=== PATIENT | female | born 1980 | race Caucasian/White ===

== ENCOUNTER 2020-11-03 20:30 | Emergency (ER) | payer BC ==
[~2020-11-03] VITALS: Ht 167.6 cm; Wt 109.3 kg
[~2020-11-03 20:30] MED LIST: ALBUTEROL0.09 MG/A2 INH; AMLODIPINE BESYL5 MG PO; AMOXICILLIN500 MG PO; AMOXIL125 MG/5 M PO; ANAPROX DS550 MG PO; BENADRYL ALLERG25 M5 PO; CIPRO250 MG PO; CIPROFLOXACIN500 MG PO; CLARITIN10 MG PO; CLARITIN5 MG/5 ML PO; COMBIVENT1 ARO IH; DAYPRO600 M1 PO; DIFLUCAN150 MG PO; FLEXERIL10 MG PO; GOOD NEIGHBOR P20 MG PO; GOOD NEIGHBOR150 MG PO; HYDROCHLOROTHIA25 M1 PO; LOSARTAN POTASS25 M1 PO; MIDRIN (DURADR1 CAP PO; MOTRIN800 MG PO; NKHM; NORCO 5-325 TA1 EACH PO; PAROXETINE HCL10 MG PO; PEN-VEE K500 MG PO; PEPCID20 MG PO; PREDNICOT20 MG PO; PREDNISONE10 M1 PO; PRELONE5 MG/5 ML PO; REGLAN10 M1 PO; ROBAXIN750 MG PO; TESSALON PERLE100 M1 PO; TESSALON PERLE100 MG PO; ZITHROMAX Z PA250 MG PO; ZITHROMAX250 MG PO
[2020-11-03 21:33] VITALS: BP 126/81
[2020-11-03 23:04] LABS: BASO % 0.2 % (0.0-1.0); EOS # 0.3 10*3/uL (0.0-0.4); EOS % 2.6 % (1.0-4.0); HEMATOCRIT 40.3 % (37.0-47.0); LYMPH # 2.7 10*3/uL (1.3-4.4); LYMPH % 27.6 % (27.0-41.0); MEAN CELL VOLUME 86.5 fl (81.0-99.0); MEAN CORPUSCULAR HGB 27.7 pg (27.0-31.0); MEAN PLATELET VOLUME 10.2 fl (9.6-12.3); MONO # 0.6 10*3/uL (0.1-1.0); NEUT # 6.1 10*3/uL (2.3-7.9); NEUT % 63.3 % (47.0-73.0); PLATELET COUNT AUTOMATED 274 10*3/uL (130-400); RED BLOOD COUNT 4.66 10*6/uL (4.10-5.10); RED CELL DISTRI WIDTH 14.9 % (0-14.5); WHITE BLOOD COUNT 9.7 10*3/uL (4.8-10.8)
[2020-11-03 23:07] LABS: BILIRUBIN Negative (Negative); BLOOD Negative (Negative); CLARITY Cloudy (Clear); COLOR Dark Yellow (Yellow); GLUCOSE Negative (Negative); KETONE Trace (Negative); LEUKO ESTERASE Negative (Negative); NITRITE Negative (Negative); SPECIFIC GRAVITY 1.025 (1.001-1.030)
[2020-11-03 23:20] LABS: ALBUMIN 3.4 gm/dl (3.1-4.5); ALKALINE PHOSPHATASE 93 U/L (45-117); BUN 12 mg/dl (7-24); CHLORIDE 111 mmol/L (98-107); CREATININE 0.89 mg/dL (0.55-1.02); LIPASE 131 U/L (73-393); SGOT/AST 14 IU/L (3-35); SGPT/ALT 29 U/L (12-78); SODIUM 140 mmol/L (136-145); TOTAL PROTEIN 7.3 gm/dL (6.4-8.2)
[2020-11-03 23:26] LABS: WBC 0-2 wbc/hpf (0-5)
== END 2020-11-04 01:07 | disposition home or self-care (01) ==
LOC: ED 20:30
PROVIDERS: Emergency Medicine
DX: R10.13 Epigastric pain (principal); K21.9 Gastro-esophageal reflux disease without esophagitis; I10 Essential (primary) hypertension; Z79.899 Other long term (current) drug therapy

== ENCOUNTER → 2021-03-27 | Outpatient (CLI) | payer BC | LOC: US 07:12 | PROVIDERS: ATTEND Nurse Practitioner Women's Health | DX: N83.292 Other ovarian cyst, left side (principal); N92.1 Excessive and frequent menstruation with irregular cycle; N94.6 Dysmenorrhea, unspecified ==

== ENCOUNTER → 2021-04-03 | Outpatient (CLI) | payer BC ==
[2021-04-03 12:12] LABS: IRON 24 ug/dL (50-170); TOTAL IRON BINDING CAPACITY 377 ug/dl (250-450)
== END | disposition home or self-care (01) ==
LOC: LAB 11:23
PROVIDERS: ATTEND Nurse Practitioner Women's Health
DX: N93.9 Abnormal uterine and vaginal bleeding, unspecified (principal)

== ENCOUNTER 2023-06-19 08:45 | Emergency (ER) | payer OTHER ==
[~2023-06-19] VITALS: Ht 170.1 cm; Wt 117.9 kg
[2023-06-19] MEDS ORDERED: SODIUM CHLORIDE 0.9% 1,000 ML IV ONE (09:10)
[2023-06-19] MEDS ORDERED: Meclizine Hydrochloride 25 MG TAB PO ONE (09:10)
[2023-06-19 09:28] VITALS: BP 144/100
[2023-06-19 09:47] LABS: BASO % 0.3 % (0.0-1.0); EOS # 0.2 10*3/uL (0.0-0.4); EOS % 2.8 % (1.0-4.0); HEMATOCRIT 42.2 % (37.0-47.0); LYMPH # 2.6 10*3/uL (1.3-4.4); LYMPH % 32.7 % (27.0-41.0); MEAN CELL VOLUME 87.9 fl (81.0-99.0); MEAN CORPUSCULAR HGB 27.7 pg (27.0-31.0); MEAN CORPUSCULAR HGB CONC 31.5 g/dl (33.0-37.0); MEAN PLATELET VOLUME 9.7 fl (9.6-12.3); MONO # 0.5 10*3/uL (0.1-1.0); MONO % 6.2 % (3.0-9.0); NEUT # 4.6 10*3/uL (2.3-7.9); NEUT % 57.6 % (47.0-73.0); PLATELET COUNT AUTOMATED 271 10*3/uL (130-400); RED CELL DISTRI WIDTH 13.7 % (0-14.5); WHITE BLOOD COUNT 7.9 10*3/uL (4.8-10.8)
[2023-06-19 10:00] LABS: ACT PARTIAL THROMBO TIME 29.3 SECONDS (20.0-32.1)
[2023-06-19 10:08] LABS: ALKALINE PHOSPHATASE 102 U/L (46-116); BUN 11 mg/dl (9-23); CHLORIDE 104 mmol/L (98-107); POTASSIUM 4.4 mmol/L (3.4-5.1); SGPT/ALT 18 U/L (5-49); TOTAL PROTEIN 6.8 gm/dL (6.0-8.0)
[2023-06-19] MEDS ORDERED: ANTIVERT25 M2 PO (10:58)
== END 2023-06-19 11:04 | disposition home or self-care (01) ==
LOC: ED 08:45
PROVIDERS: Emergency Medicine
DX: R42 Dizziness and giddiness (principal); H53.8 Other visual disturbances; M79.602 Pain in left arm; M79.601 Pain in right arm; I10 Essential (primary) hypertension; F32.A Depression, unspecified; G43.909 Migraine, unspecified, not intractable, without status migrainosus; K21.9 Gastro-esophageal reflux disease without esophagitis; Z98.51 Tubal ligation status; Z90.49 Acquired absence of other specified parts of digestive tract

== ENCOUNTER → 2023-08-17 | Outpatient (CLI) | payer OTHER ==
[~2023-08-17] MED LIST changes: +ANTIVERT25 M2 PO
== END | disposition home or self-care (01) ==
LOC: LAB 08:07
PROVIDERS: ATTEND Nurse Practitioner Family
DX: R53.83 Other fatigue (principal)

== ENCOUNTER → 2023-10-26 | Outpatient (CLI) | payer OTHER ==
[2023-10-26 08:44] LABS: BASO % 0.4 % (0.0-1.0); EOS # 0.2 10*3/uL (0.0-0.4); EOS % 2.1 % (1.0-4.0); HEMATOCRIT 41.6 % (37.0-47.0); LYMPH # 2.4 10*3/uL (1.3-4.4); LYMPH % 29.3 % (27.0-41.0); MEAN CORPUSCULAR HGB 28.2 pg (27.0-31.0); MEAN CORPUSCULAR HGB CONC 32.5 g/dl (33.0-37.0); MEAN PLATELET VOLUME 9.7 fl (9.6-12.3); MONO # 0.5 10*3/uL (0.1-1.0); MONO % 5.7 % (3.0-9.0); NEUT # 5.1 10*3/uL (2.3-7.9); NEUT % 62.3 % (47.0-73.0); PLATELET COUNT AUTOMATED 263 10*3/uL (130-400); RED BLOOD COUNT 4.78 10*6/uL (4.10-5.10); RED CELL DISTRI WIDTH 13.9 % (0-14.5); WHITE BLOOD COUNT 8.1 10*3/uL (4.8-10.8)
[2023-10-26 09:23] LABS: BUN 6 mg/dl (9-23); CHLORIDE 104 mmol/L (98-107); CHOLESTEROL 151 mg/dL (<200); LDL CHOLESTEROL 61 mg/dL (9-159); POTASSIUM 4.3 mmol/L (3.4-5.1); TRIGLYCERIDES 224 mg/dl (<150)
[2023-10-26 09:24] LABS: ALKALINE PHOSPHATASE 107 U/L (46-116); SGPT/ALT 9 U/L (5-49); TOTAL PROTEIN 6.8 gm/dL (6.0-8.0)
== END | disposition home or self-care (01) ==
LOC: LAB 08:09
PROVIDERS: ATTEND Nurse Practitioner Family
DX: I10 Essential (primary) hypertension (principal); E78.2 Mixed hyperlipidemia; K21.9 Gastro-esophageal reflux disease without esophagitis

== ENCOUNTER → 2023-12-14 | Outpatient (CLI) | payer OTHER | END | disposition home or self-care (01) | LOC: RAD 10:43 | PROVIDERS: ATTEND Nurse Practitioner Family | DX: M47.817 Spondylosis without myelopathy or radiculopathy, lumbosacral region (principal); M54.30 Sciatica, unspecified side ==

== ENCOUNTER → 2023-12-30 | Outpatient (CLI) | payer OTHER | END | disposition home or self-care (01) | LOC: LAB 16:56 | PROVIDERS: ATTEND Nurse Practitioner Family | DX: R30.0 Dysuria (principal) ==

== ENCOUNTER → 2024-04-22 | Outpatient (CLI) | payer OTHER | END | disposition home or self-care (01) | LOC: CT 14:49 | PROVIDERS: ATTEND Nurse Practitioner Family | DX: G43.909 Migraine, unspecified, not intractable, without status migrainosus (principal) ==

== ENCOUNTER → 2024-05-06 | Outpatient (CLI) | payer OTHER ==
[2024-05-06 11:09] LABS: BILIRUBIN Negative (Negative); BLOOD Negative (Negative); CLARITY Clear (Clear); COLOR Yellow (Yellow); GLUCOSE Negative (Negative); KETONE Negative (Negative); LEUKO ESTERASE Negative (Negative); NITRITE Negative (Negative)
[2024-05-06 11:12] LABS: BASO % 0.2 % (0.0-1.0); EOS # 0.1 10*3/uL (0.0-0.4); EOS % 1.5 % (1.0-4.0); MEAN CELL VOLUME 87.3 fl (81.0-99.0); MEAN CORPUSCULAR HGB 27.8 pg (27.0-31.0); MEAN CORPUSCULAR HGB CONC 31.8 g/dl (33.0-37.0); MEAN PLATELET VOLUME 9.8 fl (9.6-12.3); MONO # 0.4 10*3/uL (0.1-1.0); MONO % 4.5 % (3.0-9.0); NEUT % 68.8 % (47.0-73.0); PLATELET COUNT AUTOMATED 282 10*3/uL (130-400); RED BLOOD COUNT 5.04 10*6/uL (4.10-5.10); WHITE BLOOD COUNT 8.7 10*3/uL (4.8-10.8)
[2024-05-06 11:22] LABS: WBC 0-2 wbc/hpf (0-5)
[2024-05-06 11:30] LABS: ALKALINE PHOSPHATASE 105 U/L (46-116); BUN 9 mg/dl (9-23); CHLORIDE 102 mmol/L (98-107); CHOLESTEROL 250 mg/dL (<200); LDL CHOLESTEROL 141 mg/dL (9-159); POTASSIUM 4.4 mmol/L (3.4-5.1); SGPT/ALT 23 U/L (5-49); TOTAL PROTEIN 7.2 gm/dL (6.0-8.0); TRIGLYCERIDES 297 mg/dl (<150)
== END | disposition home or self-care (01) ==
LOC: LAB 10:22
PROVIDERS: ATTEND Nurse Practitioner Family
DX: R10.32 Left lower quadrant pain (principal)

== ENCOUNTER → 2024-09-07 | Outpatient (CLI) | payer OTHER | END | disposition home or self-care (01) | LOC: LAB 09:17 | PROVIDERS: ATTEND Nurse Practitioner Family | DX: R30.0 Dysuria (principal) ==

== ENCOUNTER → 2024-10-31 | Outpatient (CLI) | payer OTHER ==
[2024-10-31 11:52] LABS: BASO # 0.0 10*3/uL (0.0-0.1); BASO % 0.3 % (0.0-1.0); EOS # 0.1 10*3/uL (0.0-0.4); EOS % 1.4 % (1.0-4.0); MEAN CELL VOLUME 88.1 fl (81.0-99.0); MEAN CORPUSCULAR HGB 27.8 pg (27.0-31.0); MEAN PLATELET VOLUME 9.7 fl (9.6-12.3); MONO # 0.4 10*3/uL (0.1-1.0); MONO % 5.8 % (3.0-9.0); NEUT # 4.6 10*3/uL (2.3-7.9); NEUT % 60.1 % (47.0-73.0); NUCLEATED RED BLOOD CELL 0.0 % (0.0-0.0); NUCLEATED RED BLOOD CELL 0.0 10*3/uL (0.0-0.0); PLATELET COUNT AUTOMATED 280 10*3/uL (130-400); RED CELL DISTRI WIDTH 13.7 % (0-14.5)
[2024-10-31 12:17] LABS: BUN 9 mg/dl (9-23); SGPT/ALT 18 U/L (5-49)
== END | disposition home or self-care (01) ==
LOC: LAB 08:44
PROVIDERS: ATTEND Nurse Practitioner Family
DX: I10 Essential (primary) hypertension (principal); E03.9 Hypothyroidism, unspecified; K21.9 Gastro-esophageal reflux disease without esophagitis; G47.09 Other insomnia; E78.2 Mixed hyperlipidemia; F41.9 Anxiety disorder, unspecified

== ENCOUNTER → 2024-11-07 | Outpatient (CLI) | payer OTHER ==
[2024-11-08 14:07] LABS: ANTI-DSDNA ANTIBODIES 1 IU/mL (0-9); ANTI-RNP ANTIBODIES 1.0 AI (0.0-0.9); ANTICHROMATIN ANTIBODIES <0.2 AI (0.0-0.9); ANTISCLERODERMA-70 AB <0.2 AI (0.0-0.9)
== END | disposition home or self-care (01) ==
LOC: RHCWE 11:37
PROVIDERS: ATTEND Nurse Practitioner Family
DX: R30.0 Dysuria (principal); M25.50 Pain in unspecified joint